=== PATIENT | male | born 1985 | race Caucasian/White ===

== ENCOUNTER 2018-05-11 12:12 | Emergency (ER) | payer BC ==
[~2018-05-11] VITALS: Ht 172.7 cm; Wt 78.0 kg
[~2018-05-11 12:12] MED LIST: MULTIVITAMINS; NAPROSYN500 MG PO; NORCO 5-325 TA1 EACH PO
[2018-05-11] MEDS ORDERED: BUSPIRONE HCL10 MG PO (12:24)
[2018-05-11 13:04] LABS: ABSOLUTE EOSINOPHILS 0.1 thou/uL (0.0-0.7); ABSOLUTE MONOCYTES 0.5 thou/uL (0.0-1.2); ABSOLUTE NEUTROPHILS 4.1 thou/uL (1.6-8.1); BASOPHILS 0.5 %; HEMATOCRIT 41.2 % (42.0-52.0); HEMOGLOBIN 14.1 gm/dL (14.0-18.0); LYMPHOCYTES 29.6 %; MCH 30.6 pg (26.0-34.0); MCHC 34.3 g/dL (28.0-37.0); MCV 89.3 fL (80.0-100.0); MONOCYTES 7.3 %; MPV 7.9 fl. (7.2-11.1); NUCLEATED RBCS 0 /100WBC; PLATELET COUNT* 260 thou/uL (150-400); POLYS 61.6 %; RBC 4.62 mil/uL (4.50-6.00); RDW-CV 13.3 % (10.5-14.5); WBC 6.7 thou/uL (4.0-11.0)
[2018-05-11 13:12] LABS: CALCIUM 8.4 mg/dL (8.5-10.1); CREATININE 0.9 mg/dL (0.6-1.3); POTASSIUM 3.6 mmol/L (3.5-5.1)
[2018-05-11 13:16] LABS: ALBUMIN 3.6 g/dL (3.4-5.0); TOTAL BILIRUBIN 0.3 mg/dL (<0.1-1.0); TOTAL PROTEIN 7.3 g/dL (6.4-8.2)
[2018-05-11 14:32] LABS: URINE BILIRUBIN NEGATIVE (Negative); URINE BLOOD NEGATIVE (Negative); URINE CLARITY CLEAR; URINE COLOR YELLOW; URINE GLUCOSE-RANDOM NEGATIVE (Negative); URINE KETONES TRACE (Negative); URINE LEUKOCYTES NEGATIVE (Negative); URINE NITRITE NEGATIVE (Negative); URINE PROTEIN NEGATIVE (Negative); URINE SPECIFIC GRAVITY >= 1.030 (1.005-1.030); URINE UROBILINOGEN 0.2 E.U./dl (0.2-1.0)
[2018-05-11] MEDS ORDERED: FLEXERIL PO (14:51)
[2018-05-11] MEDS ORDERED: KEFLEX500 M1 PO (14:51)
[2018-05-11] MEDS ORDERED: IBUPROFEN 800800 M1 PO (14:51)
[2018-05-11 15:15] VITALS: BP 145/94
== END 2018-05-11 15:18 | disposition home or self-care (01) ==
LOC: M.ERS 12:12
PROVIDERS: Emergency Medicine Emergency Medical Services
DX: S91.312A Laceration without foreign body, left foot, initial encounter (principal); S90.112A Contusion of left great toe without damage to nail, initial encounter; S80.212A Abrasion, left knee, initial encounter; S80.211A Abrasion, right knee, initial encounter; S50.312A Abrasion of left elbow, initial encounter; F41.9 Anxiety disorder, unspecified; V29.9XXA Motorcycle rider (driver) (passenger) injured in unspecified traffic accident, initial encounter; Y93.55 Activity, bike riding; Y92.89 Other specified places as the place of occurrence of the external cause; Y99.8 Other external cause status